=== PATIENT | male | born 1960 | race Hispanic/Latino ===

== ENCOUNTER → 2021-08-19 | Day surgery (SDC) | payer OTHER ==
[2021-08-18 10:23] LABS: BASOPHILS % 0.2 % (0.0-1.0); EOSINOPHILS # (AUTO) 0.1 (0.0-0.4); EOSINOPHILS % 1.2 % (0.0-6.0); HEMATOCRIT 32.9 % (38.2-49.6); HEMOGLOBIN 12.1 g/dL (14.0-18.0); LYMPHOCYTES # (AUTO) 1.3 (1.0-3.2); LYMPHOCYTES % 23.8 % (18.0-39.1); MEAN CORPUSCULAR HEMOGLOBIN 46.4 pg (28-32); MEAN CORPUSCULAR HGB CONC 36.8 g/dL (31-35); MEAN CORPUSCULAR VOLUME 126.1 fL (81-99); MONOCYTES # (AUTO) 0.2 (0.2-0.8); MONOCYTES % 4.1 % (4.4-11.3); NEUTROPHILS % 70.3 % (38.7-80.0); PLATELET COUNT 210 x10e3/uL (140-360); RED BLOOD COUNT 2.61 x10e6/uL (4.3-5.7); RED CELL DISTRIBUTION WIDTH 11.4 % (11.7-14.4)
[2021-08-18 10:48] LABS: ANION GAP 9.9 mmol/L (8-16); CALCIUM 9.9 mg/dL (8.4-10.2); CREATININE, SERUM 0.88 mg/dL (0.72-1.25); POTASSIUM 3.9 mmol/L (3.5-5.1)
[~2021-08-19] MED LIST: ACETAMINOPHEN/CODEINE 300MG - 30MG TAB ONE; ACTOS15 MG PO; BUPIVACAINE HCL 0.5% INJ 30 ML VIAL INJ ONE; CEFTRIAXONE 1 GM VIAL ONE; FINASTERIDE5 MG PO; GLUCOTROL10 MG PO; JANUMET 50-1,01 EACH PO; PRAVASTATIN SOD20 MG PO; SODIUM CHLORIDE 0.9% 50ML 100 ML ONE; SODIUM CHLORIDE 0.9% 50ML 50 ML ONE
[2021-08-19 08:30] VITALS: BP 131/81
== END | disposition home or self-care (01) ==
LOC: OR 05:51
PROVIDERS: ATTEND Orthopaedic Surgery
DX: M66.231 Spontaneous rupture of extensor tendons, right forearm (principal); M77.11 Lateral epicondylitis, right elbow; E11.9 Type 2 diabetes mellitus without complications; Z01.810 Encounter for preprocedural cardiovascular examination; Z01.812 Encounter for preprocedural laboratory examination; Z20.822 Contact with and (suspected) exposure to COVID-19; Z79.84 Long term (current) use of oral hypoglycemic drugs
CPT/HCPCS: 24359; 36415 ×2; 80048; 82948; 85025; 93005; J0690; J0696; U0002